=== PATIENT | female | born 1975 | race Caucasian/White ===

== ENCOUNTER 2017-03-16 11:04 | Emergency (ER) | payer OTHER ==
[2017-03-16 11:11] VITALS: BP 123/77; PULSE 98; TEMP 98.1; BMI 27.2
--- NOTE | 2017-03-16 11:53 | PDOC ---
History of Present Illness - General Chief Complaint: Seizure Stated Complaint: FEVER, (SEIZURE) Time Seen by Provider: 03/16/17 11:49 - History of Present Illness Initial Comments: 03/16/17 12:15 Patient is a 42 year old female with a history of epilepsy who presents for concerns of seizure in the setting of fever. She is accompanied by her mother and father who assist in providing the history. The patient reports having a seizure 1 day ago that was typical for her. She reports that her typical seizures consist of right sided head turning with loss of awareness. Earlier this morning, the patient reports feeling "off" with a sensation that she was going to have a seizure. Her parents measured the patient's temp and it was 99.4 at 10am. They measured it again at 11am and it was 100.4. The patient then took tylenol and presented to the ED. Of note, the patient reports having a nerves stimulator placed 2 months ago. The patient takes Phenobarb 30mg once a day, Lamictal 100 BID, and Depakot 500 BID to manage her seizures. She denies other symptoms including, SOB, cough, chest pain, abdominal pain, nausea , vomiting, or changes with urination or bowel movements. She does endorse having a sore throat 2 days ago which has resolved. Past History - Past Medical History Allergies/Adverse Reactions: Allergies Allergy/AdvReac Type Severity Reaction Status Date / Time No Known Allergies Allergy Verified 03/16/17 11:08 Home Medications: Ambulatory Orders Lamotrigine [Lamictal] 100 mg PO BID 03/16/17 Phenobarbital 30 mg PO DAILY 03/16/17 Valproic Acid (As Sodium Salt) [Valproic Acid] 500 mg PO BID 03/16/17 Seizures: Yes - Psycho/Social/Smoking Cessation Hx Anxiety: No Suicidal Ideation: No Smoking History: Never smoked Have you smoked in the past 12 months: No Information on smoking cessation initiated: No Hx Alcohol Use: No Drug/Substance Use Hx: No Substance Use Type: None Review of Systems - Review of Systems Constitutional: Yes: Fever. No: Chills HEENTM: Yes: Throat Pain. No: Nose Congestion Respiratory: No: Cough, Shortness of Breath Cardiac (ROS): No: Chest Pain, Palpitations ABD/GI: No: Constipated, Diarrhea, Nausea, Vomiting : No: Burning, Dysuria Integumentary: No: Rash Neurological: Yes: Headache. No: Numbness, Tingling, Weakness *Physical Exam - Vital Signs Last Vital Signs Temp Pulse Resp BP Pulse Ox 98.1 F 98 H 18 123/77 100 03/16/17 11:08 03/16/17 11:08 03/16/17 11:08 03/16/17 11:08 03/16/17 11:08 - Physical Exam Comments: 03/16/17 12:31 General Appearance: Nourished. No Apparent Distress HEENT: No Pharyngeal Erythema, Tonsillar Exudate, Tonsillar Erythema, Nasal Congestion Respiratory/Chest: Lungs Clear, Normal Breath Sounds. No Crackles, Rales, Rhonchi, Wheezing Cardiovascular: Regular Rhythm, Regular Rate. No Murmur, Gallop/S3, Gallop/S4 Gastrointestinal/Abdominal: Normal Bowel Sounds, Soft. 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 Given her history and physical exam, it is likely the patient is experiencing a viral illness that temporarily lowered her seizure threshold yesterday. We will obtain a cbc, cmp, and depakote level to evaluate for other causes such as infectious or metabolic that could have precipitated her seizure. We will also get in contact with her neurologist Dr. Parson. 03/16/17 14:17 CBC, cmp are unremarkable. We discussed the case with Dr. Parson who agreed that the patient's symptoms was likely due to a viral syndrome. Dr. Parson agreed with discharging the patient home with follow up in her clinic. Dr. Parson requested that we draw lamotragine levels and plasma ammonia levels. The patient is requesting discharge and wishes that we call her with the results of the levels. We feel comfortable discharging the patient home and will call the patient with the results of her levels at [phone]. 03/16/17 20:06 Patient was contacted regarding her lab values and informed that they were normal. We emphasized that she should follow up with her primary care provider and neurologist. The patient voiced understanding. *DC/Admit/Observation/Transfer Diagnosis at time of Disposition: Viral illness - Discharge Dispostion Disposition: HOME Condition at time of disposition: Improved Admit: No - Referrals Referrals: Isabell Parson MD [Staff Physician] - - Patient Instructions Printed Discharge Instructions: DI for Viral Syndrome Additional Instructions: Please return to the ER if you experience concerning or worsening symptoms including worsening fevers, chills, nausea, vomiting. Please follow up with your neurologist Dr. Parson to discuss your ER visit. We will call you with the results of the levels that were drawn here in the ER. - Attestations Physician Attestion: 03/16/17 14:23 I, Dr. Festus Monroy, attest that this document has been prepared under my direction and personally reviewed by me in its entirety. I further attest, that it accurately reflects all work, treatment, procedures and medical decision -making performed by me.
[2017-03-16 12:52] LABS: BASOPHIL 0.8 % (0-2.0); MCH 26.5 pg (25.7-33.7); MCHC 32.4 g/dl (32.0-36.0); MEAN PLT VOLUME 8.8 fl (7.5-11.1); NEUTROPHILS 76.3 % (42.8-82.8); PLATELET COUNT 267 K/MM3 (134-434); RDW 14.4 % (11.6-15.6); WHITE BLOOD COUNT 8.3 K/mm3 (4.0-10.0)
[2017-03-16 13:28] LABS: ALBUMIN 4.1 g/dl (3.4-5.0); ANION GAP 9 (8-16); CALCIUM 9.6 mg/dL (8.5-10.1); CO2 28 mmol/L (21-32); CREATININE 0.5 mg/dL (0.55-1.02); GLUCOSE,RANDOM 124 mg/dL (74-106); SGOT/AST 9 U/L (15-37); SGPT/ALT 22 U/L (12-78)
[2017-03-16 13:30] LABS: ALK PHOS 51 U/L (45-117); BILIRUBIN,TOTAL 0.8 mg/dL (0.2-1.0); TOT PROT 8.1 g/dl (6.4-8.2)
== END 2017-03-16 14:49 | disposition home or self-care (01) ==
LOC: JER 11:04
DX: B34.9 Viral infection, unspecified (principal)
CPT/HCPCS: 36415; 80053; 80164; 80175; 82140; 85025; 99283-25